=== PATIENT | male | born 1975 | race Caucasian/White ===

== ENCOUNTER 2022-06-10 08:34 | Day surgery (SDC) | payer OTHER ==
[~2022-06-10] VITALS: Ht 180.3 cm; Wt 100.7 kg
[2022-06-10] MEDS ORDERED: LIDOCAINE 1% 500 MG/50 ML VIAL ONE (09:48)
[2022-06-10] MEDS ORDERED: BUPIVACAINE-MPF 0.5% 30 ML VIAL INJ ONE (09:49)
[2022-06-10] MEDS ORDERED: SEVOFLURANE 250 ML BTL INH ONE (10:41)
[2022-06-10] MEDS ORDERED: fentaNYL citrate 0.05 MG/ML VIAL ONE (10:43)
[2022-06-10] MEDS ORDERED: BUPIVACAINE-MPF 0.25% 30 ML VIAL INJ ONE (10:52)
[2022-06-10] MEDS ORDERED: PROPOFOL 200 MG/20 ML VIAL IV ONE ×2 (11:20)
[2022-06-10] MEDS ORDERED: ONDANSETRON 4 MG/2 ML VIAL ONE (11:21)
[2022-06-10] MEDS ORDERED: METOCLOPRAMIDE 10 MG/2 ML INJ VIAL ONE (11:21)
[2022-06-10] MEDS ORDERED: KETOROLAC 30 MG/ML VIAL ONE (11:22)
[2022-06-10] MEDS ORDERED: LABETALOL 20 MG/4 ML VIAL IVP PRN (11:52)
[2022-06-10] MEDS ORDERED: hydrALAZINE 20 MG/ML VIAL IVP PRN (11:52)
[2022-06-10] MEDS ORDERED: LACTATED RINGERS 1,000 ML IV SCH (11:55)
[2022-06-10] MEDS ORDERED: HYDROmorphone 1 MG/ML AMP IVP PRN (11:55)
[2022-06-10] MEDS ORDERED: HYDROcodone/APAP 5/325 MG 1 TAB TAB PO STA (12:49)
[2022-06-10] MEDS ORDERED: HYDROcodone/APAP 5/325 MG 1 TAB TAB ONE (12:51)
[2022-06-10] MEDS ORDERED: HYDROcodone/APAP 5/325 MG 1 TAB TAB PO ONE (12:53)
== END 2022-06-10 13:25 | disposition home or self-care (01) ==
LOC: MDS 08:34 → MMU 08:37 → MDS 13:25
PROVIDERS: ATTEND Surgery
DX: K60.3 Anal fistula (principal); R22.9 Localized swelling, mass and lump, unspecified; Z20.822 Contact with and (suspected) exposure to COVID-19
CPT/HCPCS: 46020; 71045; 87426; J1885; J2001; J2405; J2704; J2765; J3010; J3490

== ENCOUNTER 2022-06-17 05:50 | Day surgery (SDC) | payer OTHER ==
[~2022-06-17] VITALS: Ht 180.3 cm; Wt 99.8 kg
[2022-06-17 06:03] VITALS: BP 145/95
--- NOTE | 2022-06-17 06:20 | NUR ---
RECEIVED IN BED 11 WITH C/O RECTAL PAIN AFTER SURGERY ON 06/10. SURGEON RECOMENDED PT CHECK IN THROUGH ER FOR PRE-OP.
--- NOTE | 2022-06-17 06:35 | NUR ---
JEANIE SWAB OBTAINED AND SENT TO LAB
--- NOTE | 2022-06-17 07:14 | NUR ---
Assumed care from [facility] Rod at this time.
[2022-06-17 07:17] LABS: BASOPHILS % (AUTO) 0.4 % (0.0-2.0); EOSINOPHILS # (AUTO) 0.3 K/uL (0-0.4); HEMATOCRIT 44.1 % (36-52); HEMOGLOBIN 14.9 g/dL (12.0-18.0); LYMPHOCYTES # (AUTO) 1.8 K/uL (2.0-11.5); LYMPHOCYTES % (AUTO) 26.7 % (20.5-51.1); MEAN CORPUSCULAR HEMOGLOBIN 28 pg (27-31); MEAN CORPUSCULAR HGB CONC 34 g/dL (33-37); MEAN CORPUSCULAR VOLUME 82.9 fL (80-94); MONOCYTES # (AUTO) 0.5 K/uL (0.8-1.0); NEUTROPHILS # (AUTO) 4.1 K/uL (1.8-7.7); NEUTROPHILS % (AUTO) 61.9 % (42.2-75.2); PLATELET COUNT (AUTO) 230 K/uL (140-450); RED BLOOD CELL COUNT(AUTO) 5.31 MIL/uL (4.20-6.10); RED CELL DISTRIBUTION WIDTH 13.4 % (11.6-13.7); WHITE BLOOD COUNT (AUTO) 6.6 K/uL (4.8-10.8)
[2022-06-17 07:27] LABS: PROTHROMBIN TIME 9.7 secs (10.8-13.4)
--- NOTE | 2022-06-17 07:29 | NUR ---
Pt report given to [facility] Yip for procedure. Transfer of care at this time.
[2022-06-17] MEDS ORDERED: ceFAZolin 2,000 MG VIAL ONE (07:46)
[2022-06-17] MEDS ORDERED: metroNIDAZOLE 500 MG/NS PREMIX 100 ML IV ONE (07:47)
[2022-06-17 08:09] LABS: ALBUMIN 3.8 g/dL (3.4-5.0); ANION GAP 15.6 (8-16); CARBON DIOXIDE 24.3 mmol/L (21-32); CREATININE 0.8 mg/dL (0.6-1.3); POTASSIUM 3.9 mmol/L (3.5-5.1)
[2022-06-17] MEDS ORDERED: DESFLURANE 240 ML BTL INH ONE (08:18)
[2022-06-17] MEDS ORDERED: ONDANSETRON 4 MG/2 ML VIAL ONE (08:20)
[2022-06-17] MEDS ORDERED: PROPOFOL 200 MG/20 ML VIAL IV ONE ×2 (08:20→08:38)
[2022-06-17] MEDS ORDERED: fentaNYL citrate 0.05 MG/ML VIAL ONE ×2 (08:21→08:40)
[2022-06-17] MEDS ORDERED: ONDANSETRON 4 MG/2 ML VIAL IVP PRN (08:35)
[2022-06-17] MEDS ORDERED: KETOROLAC 30 MG/ML VIAL ONE (08:59)
[2022-06-17] MEDS: HYDROmorphone 1 MG/ML AMP IVP PRN ×4 (09:30→10:00)
[2022-06-17] MEDS ORDERED: HYDROmorphone PFS 2 MG/ML SYR ONE (09:36)
== END 2022-06-17 11:10 | disposition home or self-care (01) ==
LOC: MED 05:50 → MMU 09:06 → MED 11:10
PROVIDERS: ATTEND Surgery
DX: L02.215 Cutaneous abscess of perineum (principal); Z20.822 Contact with and (suspected) exposure to COVID-19; Z79.01 Long term (current) use of anticoagulants; Z79.899 Other long term (current) drug therapy
CPT/HCPCS: 36415; 46030; 46050; 80053; 85025; 85610; 85730; 86886; 86900; 86901; 87426; J1170; J1885; J2405; J2704; J3010; J3490

== ENCOUNTER 2022-08-21 08:16 | Day surgery (SDC) | payer OTHER ==
[~2022-08-21 08:16] MED LIST: BUPIVACAINE-MPF 0.5% 30 ML VIAL INJ ONE; LIDOCAINE MPF 1% 5 ML ONE
[2022-08-21] MEDS ORDERED: ROCURONIUM 50 MG/5 ML VIAL IV ONE (09:00)
[2022-08-21] MEDS ORDERED: METOCLOPRAMIDE 10 MG/2 ML INJ VIAL ONE (09:00)
[2022-08-21] MEDS ORDERED: PROPOFOL 200 MG/20 ML VIAL IV ONE ×2 (09:00→09:08)
[2022-08-21] MEDS ORDERED: SEVOFLURANE 250 ML BTL INH ONE (09:00)
[2022-08-21] MEDS ORDERED: fentaNYL citrate 0.05 MG/ML - 50mL vial IV ONE (09:00)
[2022-08-21] MEDS ORDERED: fentaNYL citrate 0.05 MG/ML VIAL ONE (09:07)
[2022-08-21] MEDS ORDERED: diphenhydrAMINE 50 MG/ML VIAL IVP PRN (09:15)
[2022-08-21] MEDS ORDERED: MEPERIDINE 25 MG/ML SYR IVP PRN (09:15)
[2022-08-21] MEDS ORDERED: ONDANSETRON 4 MG/2 ML VIAL IVP PRN (09:15)
[2022-08-21] MEDS ORDERED: LACTATED RINGERS 1,000 ML IV SCH (09:15)
[2022-08-21] MEDS ORDERED: HYDROmorphone 1 MG/ML AMP IVP PRN (09:15)
[2022-08-21] MEDS ORDERED: SUCCINYLCHOLINE CHLORIDE 200 MG/10 ML VIAL IVP ONE (09:45)
[2022-08-21] MEDS ORDERED: ONDANSETRON 4 MG/2 ML VIAL ONE (09:46)
[2022-08-21] MEDS ORDERED: MEPERIDINE 25 MG/ML SYR ONE (10:49)
== END 2022-08-21 11:50 | disposition home or self-care (01) ==
LOC: MOR 08:16 → MMU 08:16 → MOR 11:50
PROVIDERS: ATTEND Surgery
DX: K60.3 Anal fistula (principal); G47.33 Obstructive sleep apnea (adult) (pediatric); E78.5 Hyperlipidemia, unspecified; E66.9 Obesity, unspecified; K21.9 Gastro-esophageal reflux disease without esophagitis; Z20.822 Contact with and (suspected) exposure to COVID-19; Z79.899 Other long term (current) drug therapy
CPT/HCPCS: 46275; 71045; 87426; 93005; J0330; J2001; J2175; J2405; J2704; J2765; J3010; J3490; J7030